=== PATIENT | female | born 1965 | race Caucasian/White ===

== ENCOUNTER → 2019-05-21 | Outpatient (CLI) | payer BC ==
[~2019-05-21] MED LIST: BENICAR HCT 401 EAC1 PO; BENICAR40 MG PO; BETA BLOCKER PO; [UNRECOGNIZED DRUG - OTHER] PO
--- NOTE | 2019-05-26 08:55 | Diagnostic Imaging Report ---
#[id number] - MGDXRT #UNILATERAL RIGHT DIGITAL DIAGNOSTIC MAMMOGRAM WITH SPOT COMPRESSION: 05/21/2019 Comparison is made to exams dated: 12/15/2015 mammogram, 11/11/2015 mammogram - [facility], 04/09/2019 mammogram and 03/13/2018 mammogram - [facility]. The tissue of the right breast is heterogeneously dense. This may lower the sensitivity of mammography. There are benign calcifications and a mass in the right breast which appears unchanged dating back to 2012. The suspected architectural distortion on the prior outside screening mammogram appears to press out and is not evident on compression views. IMPRESSION: BENIGN The suspected architectural distortion on the prior outside screening mammogram appears to press out and is not evident on compression views. There is no mammographic evidence of malignancy. A 1 year screening mammogram is recommended. The patient will be notified by letter of the results. KASIA DENSON M.D. kw/:05/22/2019 16:42:03 Nursing Home Aide: Marimar AGUDELO(Darrell)(Kennedy), [facility] letter sent: Compared to Prior B9 Mammogram BI-RADS: 2 Benign
== END ==
LOC: MAMMO 14:22
PROVIDERS: ATTEND Family Medicine
DX: R92.8 Other abnormal and inconclusive findings on diagnostic imaging of breast (principal)

== ENCOUNTER → 2020-06-24 | Outpatient (CLI) | payer BC | LOC: MAMMO 14:31 | PROVIDERS: ATTEND Family Medicine | DX: Z12.31 Encounter for screening mammogram for malignant neoplasm of breast (principal) | CPT/HCPCS: 77067 ==

== ENCOUNTER → 2021-07-28 | Outpatient (CLI) | payer BC | LOC: MAMMO 09:30 | PROVIDERS: ATTEND Family Medicine | DX: Z12.31 Encounter for screening mammogram for malignant neoplasm of breast (principal) | CPT/HCPCS: 77067 ==

== ENCOUNTER → 2022-08-29 | Outpatient (CLI) | payer BC | LOC: MAMMO 14:43 | PROVIDERS: ATTEND Family Medicine | DX: Z12.31 Encounter for screening mammogram for malignant neoplasm of breast (principal) | CPT/HCPCS: 77067 ==

== ENCOUNTER → 2024-10-08 | Outpatient (REF) | payer BC | LOC: MAMMO 14:07 | PROVIDERS: ATTEND Family Medicine | DX: Z12.31 Encounter for screening mammogram for malignant neoplasm of breast (principal) | CPT/HCPCS: 77067 ==